=== PATIENT | female | born 1970 | race Caucasian/White ===

== ENCOUNTER 2018-07-16 22:32 | Emergency (ER) | payer MEDICAID, OTHER ==
--- NOTE | 2018-07-16 22:55 | ER Document Report ---
ED General - General Chief Complaint: Anxiety Stated Complaint: WEAKNESS Time Seen by Provider: 07/16/18 22:38 TRAVEL OUTSIDE OF THE [place] IN LAST 30 DAYS: No - HPI Notes: Patient is a 47 year old female that presents to the emergency department for chief complaint of near syncope and depression. Patient states that she has had increased depression for the last few months since her fianc in January 2018. She lives at home with her dog and expresses no desire to continue living. She states she is not actively suicidal and does not have a plan to hurt or kill herself but she does say that she does not care if she does not wake up in the morning. Tonight she had an episode where when she closed her eyes she felt "very sleepy". She denies chest pain, shortness of breath, palpitations, syncope, headache, numbness, weakness, fevers/chills and abdominal pain. She states that she believes her symptoms are related to not having her clonazepam and Ambien for the last few days. She stat es she was planning on moving but that recently fell through. She had been in the process of transferring her psychiatric care to her new place of residence which is why they prescriptions lapsed. She states she has an appointment at [facility] on Tuesday or to reestablish her medications. Past Medical History: Bipolar, depression, anxiety Past Surgical History: Negative Social History: Denies drugs alcohol and tobacco Family History: Reviewed and noncontributory for presenting illness Allergies: Reviewed, see documented allergy list. REVIEW OF SYSTEMS: CONSTITUTIONAL : No fever No chills No diaphoresis No recent illness EENT: No vision changes No congestion No sore throat CARDIOVASCULAR: Lightheadedness No chest pain No palpitations RESPIRATORY: No shortness of breath No cough No difficulty breathing GASTROINTESTINAL: No abdominal pain No nausea No vomiting No diarrhea GENITOURINARY: No dysuria No hematuria No difficulty urinating MUSCULOSKELETAL: No back pain No leg pain No arm pain SKIN: No rashes No lesions LYMPHATIC: No swollen, enlarged glands. NEUROLOGICAL: No headache No weakness No paresthesias PSYCHIATRIC: No anxiety depression Suicidal ideation PHYSICAL EXAMINATION: Vital signs reviewed, nursing noted reviewed. GENERAL: Well-appearing, well-nourished and in no acute distress. HEAD: Atraumatic, normocephalic. EYES: Eyes appear normal, extraocular movements intact, sclera anicteric, conjunctiva are normal. ENT: nares patent, oropharynx clear without exudates. Moist mucous membranes. NECK: Normal range of motion, supple without lymphadenopathy LUNGS: Breath sounds clear to auscultation bilaterally and equal. No wheezes rales or rhonchi. HEART: Regular rate and rhythm without murmurs ABDOMEN: Soft, nontender, normoactive bowel sounds. No rebound, guarding, or rigidity. No masses appreciated. EXTREMITIES: Nontender, good range of motion, no pitting or edema. NEUROLOGICAL: No focal neurological deficits. Moves all extremities spontaneously Motor and sensory grossly intact on exam. PSYCH: Tearful, depressed, withdrawn SKIN: Warm, Dry, normal turgor, no rashes or lesions noted on exposed skin Past Medical History - Social History Smoking Status: Never Smoker Family History: Reviewed & Not Pertinent Physical Exam - Vital signs Vitals: Temp Pulse Resp BP Pulse Ox 97.8 F 100 17 110/79 96 07/16/18 22:50 07/16/18 22:50 07/16/18 22:50 07/16/18 22:50 07/16/18 22:50 Course - Re-evaluation Re-evalutation: 07/16/18 22:54 Vitals reviewed. Nursing notes reviewed. Patient is very tearful during my exam. She currently is denying any active suicidal thoughts but does have symptoms of major depression. She is having decreased appetite. Today she slept until 2 PM. She has no desire to continue on feeling this way. Patient would like to talk to psych in the morning to discuss her medications and symptoms. 07/17/18 01:30 Laboratory 07/16/18 07/16/18 07/17/18 23:52 23:52 00:39 WBC 8.4 RBC 4.67 Hgb 13.1 Hct 39.3 MCV 84 MCH 28.0 MCHC 33.3 RDW 15.2 H Plt Count 337 Seg Neutrophils % 70.0 Lymphocytes % 18.1 Monocytes % 9.2 Eosinophils % 2.0 Basophils % 0.7 Absolute Neutrophils 5.8 Absolute Lymphocytes 1.5 Absolute Monocytes 0.8 Absolute Eosinophils 0.2 Absolute Basophils 0.1 Sodium 138.7 Potassium 3.9 Chloride 97 L Carbon Dioxide 30 Anion Gap 12 BUN 22 H Creatinine 0.97 Est GFR ( Amer) > 60 Est GFR (Non-Af Amer) > 60 Glucose 106 Calcium 9.7 Total Bilirubin 0.3 Direct Bilirubin 0.3 Neonat Total Bilirubin Not Reportable Neonat Direct Bilirubin Not Reportable Neonat Indirect Bili Not Reportable AST 16 ALT 13 Alkaline Phosphatase 89 Total Protein 7.8 Albumin 4.3 Urine Color YELLOW Urine Appearance SLIGHTLY-CLOUDY Urine pH 5.0 Ur Specific [place] 1.019 Urine Protein NEGATIVE Urine Glucose (UA) NEGATIVE Urine Ketones NEGATIVE Urine Blood NEGATIVE Urine Nitrite NEGATIVE Urine Bilirubin NEGATIVE Urine Urobilinogen 2.0 H Ur Leukocyte Esterase MODERATE H Urine WBC (Auto) 8 Urine RBC (Auto) 1 Urine Bacteria (Auto) TRACE Squamous Epi Cells Auto 2 Urine Mucus (Auto) FEW Urine Ascorbic Acid NEGATIVE Salicylates < 1.0 L Urine Opiates Screen Urine Methadone Screen Acetaminophen < 10 L Ur Barbiturates Screen Ur Phencyclidine Scrn Ur Amphetamines Screen U Benzodiazepines Scrn Urine Cocaine Screen U Marijuana (THC) Screen Serum Alcohol < 10 07/17/18 00:39 WBC RBC Hgb Hct MCV MCH MCHC RDW Plt Count Seg Neutrophils % Lymphocytes % Monocytes % Eosinophils % Basophils % Absolute Neutrophils Absolute Lymphocytes Absolute Monocytes Absolute Eosinophils Absolute Basophils Sodium Potassium Chloride Carbon Dioxide Anion Gap BUN Creatinine Est GFR ( Amer) Est GFR (Non-Af Amer) Glucose Calcium Total Bilirubin Direct Bilirubin Neonat Total Bilirubin Neonat Direct Bilirubin Neonat Indirect Bili AST ALT Alkaline Phosphatase Total Protein Albumin Urine Color Urine Appearance Urine pH Ur Specific [place] Urine Protein Urine Glucose (UA) Urine Ketones Urine Blood Urine Nitrite Urine Bilirubin Urine Urobilinogen Ur Leukocyte Esterase Urine WBC (Auto) Urine RBC (Auto) Urine Bacteria (Auto) Squamous Epi Cells Auto Urine Mucus (Auto) Urine Ascorbic Acid Salicylates Urine Opiates Screen NEGATIVE Urine Methadone Screen NEGATIVE Acetaminophen Ur Barbiturates Screen NEGATIVE Ur Phencyclidine Scrn NEGATIVE Ur Amphetamines Screen NEGATIVE U Benzodiazepines Scrn NEGATIVE Urine Cocaine Screen NEGATIVE U Marijuana (THC) Screen NEGATIVE Serum Alcohol Patient has urinary tract infection that will be treated with Keflex. She is otherwise medically cleared for psych evaluation in the morning. She was given a dose of Klonopin for symptomatic management in the ED. - Vital Signs Vital signs: Temp Pulse Resp BP Pulse Ox 97.8 F 100 17 110/79 96 07/16/18 22:50 07/16/18 22:50 07/16/18 22:50 07/16/18 22:50 07/16/18 22:50 - Laboratory Result Diagrams: 07/16/18 23:52 07/16/18 23:52 Laboratory results interpreted by me: 07/16/18 07/16/18 07/17/18 23:52 23:52 00:39 RDW 15.2 H Chloride 97 L BUN 22 H Urine Urobilinogen 2.0 H Ur Leukocyte Esterase MODERATE H Salicylates < 1.0 L Acetaminophen < 10 L - EKG Interpretation by Me Additional EKG results interpreted by me: 07/16/18 23:05 Interpreted by myself [id number]: Normal sinus rhythm, rate 99, normal axis, no ectopy, no ST elevation, nonspecific T wave flattening diffusely Discharge - Discharge Clinical Impression: Depression Qualifiers: Depression Type: other depression Qualified Code(s): F32.89 - Other specified depressive episodes UTI (urinary tract infection) Qualifiers: Urinary tract infection type: acute cystitis Hematuria presence: without hematuria Qualified Code(s): N30.00 - Acute cystitis without hematuria Condition: Stable Instructions: Anxiety ([facility]) Referrals: [facility] [Primary Care Provider] - Follow up as needed
[2018-07-17 00:12] LABS: ABSOLUTE BASOPHILS # (AUTO) 0.1 10^3/uL (0.0-0.2); ABSOLUTE EOSINOPHILS # (AUTO) 0.2 10^3/uL (0.0-0.6); ABSOLUTE LYMPHOCYTES (AUTO) 1.5 10^3/uL (0.5-4.7); ABSOLUTE MONOCYTES (AUTO) 0.8 10^3/uL (0.1-1.4); ABSOLUTE NEUT (AUTO) 5.8 10^3/uL (1.7-8.2); BASOPHILS % (AUTO) 0.7 % (0-2); HEMATOCRIT 39.3 % (36.0-47.0); HEMOGLOBIN 13.1 g/dL (12.0-15.5); LYMPHOCYTES % (AUTO) 18.1 % (13-45); MEAN CORPUSCULAR HGB CONC 33.3 g/dL (32.0-36.0); MEAN CORPUSCULAR VOLUME 84 fl (80-97); MONOCYTES % (AUTO) 9.2 % (3-13); PLATELET COUNT 337 10^3/uL (150-450); RED BLOOD COUNT 4.67 10^6/uL (3.72-5.28); RED CELL DISTRIBUTION WIDTH 15.2 % (11.5-14.0); TOTAL CELLS COUNTED % (AUTO) 100 %; WHITE BLOOD COUNT 8.4 10^3/uL (4.0-10.5)
[2018-07-17 00:14] LABS: ALANINE AMINOTRANSFERASE 13 U/L (9-52); ALBUMIN 4.3 g/dL (3.5-5.0); ALKALINE PHOSPHATASE 89 U/L (38-126); ANION GAP 12 (5-19); ASPARTATE AMINO TRANSFERASE 16 U/L (14-36); BILIRUBIN,DIRECT 0.3 mg/dL (0.0-0.4); BILIRUBIN,TOTAL 0.3 mg/dL (0.2-1.3); BLOOD UREA NITROGEN 22 mg/dL (7-20); CALCIUM 9.7 mg/dL (8.4-10.2); CARBON DIOXIDE 30 mmol/L (22-30); CHLORIDE 97 mmol/L (98-107); GLUCOSE 106 mg/dL (75-110); POTASSIUM 3.9 mmol/L (3.6-5.0); SODIUM 138.7 mmol/L (137-145); TOTAL PROTEIN 7.8 g/dL (6.3-8.2)
[2018-07-17 00:15] LABS: ACETAMINOPHEN < 10 ug/mL (10-30); ALCOHOL < 10 mg/dL (NONE DETECTED); SALICYLATE < 1.0 mg/dL (2.0-20.0)
[2018-07-17] MEDS ORDERED: CLONAZEPAM 1 MG TABLET PO ONE (00:47)
--- NOTE | 2018-07-17 00:55 | EKG REPORT ---
SEVERITY:- ABNORMAL ECG - SINUS RHYTHM NONSPECIFIC T ABNORMALITIES, ANTERIOR LEADS : Confirmed by: Ni Elizalde MD 17-Jul-2018 00:54:44
[2018-07-17 01:16] LABS: URINE AMPHETAMINES SCREEN NEGATIVE; URINE BARBITURATES SCREEN NEGATIVE; URINE BENZODIAZEPINES SCREEN NEGATIVE; URINE COCAINE SCREEN NEGATIVE; URINE MARIJUANA (THC) SCREEN NEGATIVE; URINE METHADONE SCREEN NEGATIVE; URINE PHENCYCLIDINE SCREEN NEGATIVE
[2018-07-17 01:17] LABS: APPEARANCE,URINE SLIGHTLY-CLOUDY; BILIRUBIN,URINE NEGATIVE (NEGATIVE); COLOR,URINE YELLOW; GLUCOSE, URINE NEGATIVE (NEGATIVE); KETONES,URINE NEGATIVE (NEGATIVE); LEUKOCYTE ESTERASE,URINE MODERATE (NEGATIVE); NITRITE,URINE NEGATIVE (NEGATIVE); PROTEIN,URINE NEGATIVE (NEGATIVE); URINE SPECIFIC GRAVITY 1.019
[2018-07-17] MEDS ORDERED: CEPHALEXIN 500 MG CAPSULE PO ONE ×2 (01:31→08:33)
[2018-07-17] MEDS ORDERED: BUSPIRONE HCL 10 MG TABLET PO ONE (08:33)
[2018-07-17 08:48] VITALS: BP 108/78
--- NOTE | 2018-07-17 14:34 | PSYCHOLOGICAL NOTE ---
Psych Note - Psych Note Date seen by psych provider: 07/17/18 Time seen by psych provider: 07:30 Psych Note: Reason for Consult: Anxiety Contact Permission: Patient is a 47 yo female presenting to the ED with concerns of chest tightness and anxiety. She discloses that she was scheduled to move to [place] on 07/13/18 but she decided not to at the last minute due to concerns about her new room mate. This turn of events left her having to scramble to find new housing. Patient denies supports in the area relaying that she and her fiance were together 10 years and he 7 months ago so patient feels lonely. She does see a therapist 1x/month and has a scheduled medication appointment at [facility] on . She attributes her anxiety and depression to having not refilled her Ambien and Clonazepam and thinks she just needs a script for something. Patient is also prescribed Oxycarbazine, Seroquel, and Trazodone which she has filled and taken as prescribed. Discussed non-narcotic anxiolytic options, increased frequency of therapy, self-pay providers, and pursuing Medicaid and patient was agreeable to all. Patient was alert and oriented x 4. Mood was anxious with congruent affect. Patient denied SI, HI, and AV/H, does not appear to be responding to internal stimuli and no delusions were noted. Thought processes were linear, organized, and rational. Conversational speech was WNL for rate, tone, and prosody. Eye contact was well maintained. Intellectual abilities were estimated within the average range. Immediate and remote memory was good. Attention and concentration was WNL, while insight, judgment, and impulse control was good. Diagnosis: Bipolar Disorder, per hx Medication recommendations as per psychiatric provider, Dr. Prather are as follows: Start Buspar 10mg bid Impression/Plan Patient is psychiatrically clear from acute psychiatric services and recommended for home/self-care as patient is stable aeb reports "feel a lot better". Patient has outpatient services in place and verbalized intent to follow up with medication appointment on 07/20/18 at [facility] and to increase frequency of therapy appointments if possible with earliest available appointment. Otherwise, patient is scheduled for therapy on 08/21/18. Patient denies SI, HI, and AV/H and feels safe to discharge to home with script. She was provided with psychoeducation and contact information about [facility] and verbalized understanding. Consulted Dr. Ji in the care and treatment of this patient and ED physician who is in agreement with recommendation and disposition.
== END 2018-07-17 09:19 | disposition home or self-care (01) ==
LOC: ER 22:32
DX: F31.9 Bipolar disorder, unspecified (principal); N30.00 Acute cystitis without hematuria; F41.9 Anxiety disorder, unspecified; T42.4X6A Underdosing of benzodiazepines, initial encounter; T42.6X6A Underdosing of other antiepileptic and sedative-hypnotic drugs, initial encounter; Z91.128 Patient's intentional underdosing of medication regimen for other reason; Z91.14 Patient's other noncompliance with medication regimen; R45.851 Suicidal ideations; R63.0 Anorexia; Z79.899 Other long term (current) drug therapy
CPT/HCPCS: 93005; 99285; 36415; 80307 ×4; 85025; 81025; 80053; 81001; 93010; J3490 ×2